=== PATIENT | male | born 1990 | race Caucasian/White ===

== ENCOUNTER 2016-12-27 19:14 | Emergency (ER) | payer OTHER ==
--- NOTE | 2016-12-27 19:39 | EDM.PDOC ---
ED HPI GENERAL MEDICAL PROBLEM - General Chief Complaint: Lower Extremity Injury/Pain Stated Complaint: PT HURT RT FOOT AT WORK Time Seen by Provider: 12/27/16 19:32 Source of Information: Reports: Patient - History of Present Illness INITIAL COMMENTS - FREE TEXT/NARRATIVE: HISTORY AND PHYSICAL: History of present illness: Patient is a 26-year-old male who presents to the emergency room with complaints of right foot pain. He states that a piece of equipment that weighs approximately 6 pounds fell landing on his right foot. He does have some swelling and slight bruising to the lateral aspect of the right foot. He was able to ambulate in but does cause pain with weightbearing. Denies any previous injury to the affected extremity. Denies any numbness or tingling Review of systems: As per history of present illness and below otherwise all systems reviewed and negative. Past medical history: As per history of present illness and as reviewed below otherwise noncontributory. Surgical history: As per history of present illness and as reviewed below otherwise noncontributory. Social history: No reported history of drug or alcohol abuse. Family history: As per history of present illness and as reviewed below otherwise noncontributory. Physical exam: HEENT: Atraumatic, normocephalic, pupils reactive, negative for conjunctival pallor or scleral icterus, mucous membranes moist, throat clear, neck supple, nontender, trachea midline. Lungs: Clear to auscultation, breath sounds equal bilaterally, chest nontender. Heart: S1S2, regular rate and rhythm Abdomen: Soft, nondistended, nontender. Negative for masses or hepatosplenomegaly. Negative for costovertebral tenderness. Pelvis: Stable nontender. Genitourinary: Deferred. Rectal: Deferred. Extremities: Bruising and swelling to the right lateral foot, with tenderness to palpation. Strong pedal pulses. Capillary refill less than 3 seconds.+CMS. Good flexion and dorsiflexion of the foot. negative for cords or calf pain. Neurovascular unremarkable. Neuro: Awake, alert, oriented. Cranial nerves II through XII unremarkable. Cerebellum unremarkable. Motor and sensory unremarkable throughout. Exam nonfocal. Offered a shot of Toradol, patient declined. Reviewed the x-ray report with the patient. Will place the patient in a Cam Walker boot and crutches. Instructed to not weight-bear until he is able to follow-up with podiatry. Patient voices understanding and is agreeable to plan of care. He denies any further questions at this time. Diagnostics: X-ray Therapeutics: [] Impression: 5th Metatarsal fracture, right Plan: 1. Prescription for pain medication, Tramadol, has been provided for you. Please do not take this while driving or needing to be functioning at work as it may cause some drowsiness. You may use Tylenol and/or ibuprofen as needed. 2. Please not weightbearing. Wear your Cam Walker boot and use the crutches appropriately. When at home please rest, ice, elevate the extremity as frequently as possible. 3. Please follow-up with podiatry in the next 3-5 days. Return to the ED as needed and as discussed. Definitive disposition and diagnosis as appropriate pending reevaluation and review of above. Right Feet Pain Score (Numeric/FACES): 3 - Related Data Allergies Allergy/AdvReac Type Severity Reaction Status Date / Time Latex, Natural Rubber Allergy Hives Verified 12/27/16 19:25 Home Meds: Home Meds . [No Known Home Meds] 09/12/14 [History] Past Medical History HEENT History: Reports: None Cardiovascular History: Reports: None Respiratory History: Reports: None Gastrointestinal History: Reports: None Genitourinary History: Reports: None Musculoskeletal History: Reports: None Neurological History: Reports: None Psychiatric History: Reports: None Endocrine/Metabolic History: Reports: None Hematologic History: Reports: None Immunologic History: Reports: None Dermatologic History: Reports: None - Past Surgical History Head Surgeries/Procedures: Reports: None HEENT Surgical History: Reports: None Cardiovascular Surgical History: Reports: None Respiratory Surgical History: Reports: None GI Surgical History: Reports: Appendectomy Male Surgical History: Reports: None Endocrine Surgical History: Reports: None Neurological Surgical History: Reports: None Musculoskeletal Surgical History: Reports: None Social & Family History - Family History Family Medical History: Noncontributory - Tobacco Use Smoking Status *Q: Current Every Day Smoker Years of Tobacco use: 8 Packs/Tins Daily: 0.5 Second Hand Smoke Exposure: Yes - Caffeine Use Caffeine Use: Reports: Energy Drinks Caffeine Use Comment: 2-3/day - Alcohol Use Days Per Week of Alcohol Use: 1 Number of Drinks Per Day: 1 Total Drinks Per Week: 1 - Recreational Drug Use Recreational Drug Use: No Drug Use in Last 12 Months: Yes Recreational Drug Type: Reports: Ecstasy, Heroin, Marijuana/Hashish, Methamphetamine Review of Systems - Review of Systems Review Of Systems: ROS reveals no pertinent complaints other than HPI. ED EXAM, GENERAL - Physical Exam Exam: See Below (See dictation) Course - Vital Signs Last Recorded V/S: Last Vital Signs Temp 37.1 C 12/27/16 19:25 Pulse 73 12/27/16 19:25 Resp 18 12/27/16 19:25 BP 139/74 12/27/16 19:25 Pulse Ox 96 12/27/16 19:25 - Orders/Labs/Meds Orders: Active Orders 24 hr Category Date Time Status Communication Order [RC] STAT Care 12/27/16 20:20 Ordered Foot 2V Rt [CR] Stat Exams 12/27/16 19:35 Taken Departure - Departure Time of Disposition: 20:31 Disposition: Home, Self-Care 01 Clinical Impression: Metatarsal fracture Qualifiers: Encounter type: initial encounter Metatarsal bone: fifth Fracture type: closed Fracture alignment: displaced Laterality: right Qualified Code(s): S92.351A - Displaced fracture of fifth metatarsal bone, right foot, initial encounter for closed fracture - Discharge Information Referrals: PCP,None [Primary Care Provider] - Forms: ED Department Discharge Additional Instructions: My general discharge The following information is given to patients seen in the emergency department who are being discharged to home. This information is to outline your options for follow-up care. We provide all patients seen in our emergency department with a follow-up referral. The need for follow-up, as well as the timing and circumstances, are variable depending upon the specifics of your emergency department visit. If you don't have a primary care physician on staff, we will provide you with a referral. We always advise you to contact your personal physician following an emergency department visit to inform them of the circumstance of the visit and for follow-up with them and/or the need for any referrals to a consulting specialist. The emergency department will also refer you to a specialist when appropriate. This referral assures that you have the opportunity for follow-up care with a specialist. All of these measure are taken in an effort to provide you with optimal care, which includes your follow-up. Under all circumstances we always encourage you to contact your private physician who remains a resource for coordinating your care. When calling for follow-up care, please make the office aware that this follow-up is from your recent emergency room visit. If for any reason you are refused follow-up, please contact the [facility] Emergency Department at and asked to speak to the emergency department charge nurse. [facility] Primary Care - ASK FOR PODIATRY FOLLOW UP [address] [place] [id number] 1. Prescription for pain medication, Tramadol, has been provided for you. Please do not take this while driving or needing to be functioning at work as it may cause some drowsiness. You may use Tylenol and/or ibuprofen as needed. 2. Please not weightbearing. Wear your Cam Walker boot and use the crutches appropriately. When at home please rest, ice, elevate the extremity as frequently as possible. 3. Please follow-up with podiatry in the next 3-5 days. Return to the ED as needed and as discussed. - My Orders Last 24 Hours: My Active Orders 12/27/16 19:35 Foot 2V Rt [CR] Stat 12/27/16 20:20 Communication Order [RC] STAT - Assessment/Plan Last 24 Hours: My Active Orders 12/27/16 19:35 Foot 2V Rt [CR] Stat 12/27/16 20:20 Communication Order [RC] STAT
[2016-12-27 21:32] VITALS: BP 132/65
--- NOTE | 2016-12-28 16:12 | CR ---
EXAM DATE: 12/27/16 PATIENT'S AGE: 26 Patient: DARSHANA SRIVASTAVA Facility: [place], [place] Site . Site : 1990 Study: XRay Extremity Right [id number] 7:53:21 PM Ordering Physician: Doctor Boyce Final Report: INDICATION: Injury to foot. Technique: Two views right foot. Findings: Mildly displaced acute intra-articular fracture involving the base of the right 5th metatarsal extending into the 5th TMT joint. Moderate soft tissue swelling lateral aspect of right foot. Mild soft tissue swelling dorsal aspect of right foot. Mild hallux valgus deformity. Mild narrowing right 1st MTP joint. Remainder negative. Dictated by Rafi Ritter MD @ Dec 27 2016 8:17PM (Electronic Signature) Report Signed by Proxy. JULIO
== END 2016-12-27 20:52 | disposition home or self-care (01) ==
LOC: MW.ED 19:14
DX: S92.351A Displaced fracture of fifth metatarsal bone, right foot, initial encounter for closed fracture (principal); F17.210 Nicotine dependence, cigarettes, uncomplicated; W19.XXXA Unspecified fall, initial encounter
CPT/HCPCS: 73620-26-RT; 73620-RT; 99283; 99284

== ENCOUNTER 2022-12-07 19:15 | Emergency (ER) | payer SELFPAY ==
[2022-12-07] MEDS ORDERED: Lidocaine 4% 1 each Patch TOP PRN (19:50)
[2022-12-07] MEDS ORDERED: Ketorolac 30 MG/ML SDV IVPUSH ONE (19:50)
[2022-12-07 20:03] LABS: BASOPHILS ABSOLUTE AUTO 0.03 K/uL (0.00-0.20); BASOPHILS PERCENT AUTO 0.3 % (0.0-1.0); EOSINOPHILS ABSOLUTE AUTO 0.18 K/uL (0.00-0.45); EOSINOPHILS PERCENT AUTO 1.6 % (0.0-6.0); HEMATOCRIT 42.2 % (42.0-52.0); HEMOGLOBIN 14.8 g/dL (14.0-18.0); IMMATURE GRAN ABSOLUTE AUTO 0.03 K/uL (0.00-0.05); IMMATURE GRAN PERCENT AUTO 0.3 % (0.0-0.4); LYMPHOCYTES ABSOLUTE AUTO 1.49 K/uL (1.00-4.80); LYMPHOCYTES PERCENT AUTO 13.2 % (24.0-44.0); MEAN CORPUSCULAR HEMOGLOBIN 31.5 pg (28.0-32.0); MEAN CORPUSCULAR HGB CONC 35.1 g/dL (32.0-36.0); MEAN CORPUSCULAR VOLUME 89.8 fL (83.0-99.0); MEAN PLATELET VOLUME 10.3 fL (9.4-12.4); MONOCYTES ABSOLUTE AUTO 1.06 K/uL (0.00-0.80); MONOCYTES PERCENT AUTO 9.4 % (0.0-8.0); NEUTROPHILS ABSOLUTE AUTO 8.53 K/uL (1.80-7.70); NEUTROPHILS PERCENT AUTO 75.2 % (41.0-71.0); PLATELET COUNT,PLT 201 K/uL (150-400); WHITE BLOOD CELL COUNT,WBC 11.32 K/uL (3.9-11.3)
[2022-12-07 20:16] LABS: CALCIUM 9.5 mg/dL (8.5-10.1); CREATININE 1.3 mg/dL (0.8-1.3); EST CRCL DRUG DOSING (CG) 83.09 mL/min
[2022-12-07 21:59] VITALS: BP 106/64; PULSE 60
== END 2022-12-07 21:58 | disposition home or self-care (01) ==
LOC: MW.ED 19:15
DX: R07.9 Chest pain, unspecified (principal); Z91.040 Latex allergy status
CPT/HCPCS: 36415; 71046; 80048; 84484; 85025; 93005; 96374; 99285; A9270; J1885; 93010; 99284

== ENCOUNTER 2024-01-15 16:14 | Emergency (ER) | payer BC ==
[2024-01-15] MEDS: Sodium Chloride 0.9% 1,000 ML IV ONE (16:46)
[2024-01-15 16:54] LABS: BASOPHILS ABSOLUTE AUTO 0.03 K/uL (0.00-0.20); BASOPHILS PERCENT AUTO 0.3 % (0.0-1.0); EOSINOPHILS ABSOLUTE AUTO 0.16 K/uL (0.00-0.45); EOSINOPHILS PERCENT AUTO 1.8 % (0.0-6.0); HEMOGLOBIN 14.2 g/dL (14.0-18.0); IMMATURE GRAN ABSOLUTE AUTO 0.04 K/uL (0.00-0.05); IMMATURE GRAN PERCENT AUTO 0.5 % (0.0-0.4); LYMPHOCYTES ABSOLUTE AUTO 1.22 K/uL (1.00-4.80); LYMPHOCYTES PERCENT AUTO 13.8 % (24.0-44.0); MEAN CORPUSCULAR HEMOGLOBIN 30.5 pg (28.0-32.0); MEAN CORPUSCULAR HGB CONC 34.6 g/dL (32.0-36.0); MEAN CORPUSCULAR VOLUME 88.2 fL (83.0-99.0); MEAN PLATELET VOLUME 9.8 fL (9.4-12.4); MONOCYTES ABSOLUTE AUTO 0.74 K/uL (0.00-0.80); MONOCYTES PERCENT AUTO 8.4 % (0.0-8.0); NEUTROPHILS ABSOLUTE AUTO 6.62 K/uL (1.80-7.70); NEUTROPHILS PERCENT AUTO 75.2 % (41.0-71.0); PLATELET COUNT,PLT 194 K/uL (150-400); RED BLOOD CELL COUNT 4.65 M/uL (4.52-5.90); WHITE BLOOD CELL COUNT,WBC 8.81 K/uL (3.9-11.3)
[2024-01-15 17:16] LABS: A/G RATIO 1.7 (0.9-1.6); ALBUMIN 4.1 g/dL (3.4-5.0); BILIRUBIN TOTAL 0.7 mg/dL (0.2-1.0); CALCIUM 8.9 mg/dL (8.5-10.1); CREATININE 1.1 mg/dL (0.8-1.3); EST CRCL DRUG DOSING (CG) 97.3 mL/min; PROTEIN TOTAL,TP 6.5 g/dL (6.4-8.2)
[2024-01-15] MEDS: Iopamidol 755 MG/ML 500 ML Multipack Bottle IVPUSH STA (17:55)
[2024-01-15 18:33] LABS: APPEARANCE,URINE CLEAR; BILIRUBIN,URINE NEGATIVE (NEGATIVE); COLOR,URINE YELLOW; GLUCOSE,URINE NEGATIVE (NEGATIVE); KETONES,URINE TRACE mg/dL (NEGATIVE); LEUKOCYTE ESTERASE,URINE NEGATIVE (NEGATIVE); NITRITE,URINE NEGATIVE (NEGATIVE); OCCULT BLOOD,URINE NEGATIVE (NEGATIVE); PROTEIN,URINE NEGATIVE (NEGATIVE)
[2024-01-15 19:37] VITALS: BP 125/74; PULSE 58
== END 2024-01-15 19:03 | disposition home or self-care (01) ==
LOC: MW.ED 16:14
DX: K42.9 Umbilical hernia without obstruction or gangrene (principal); Z90.49 Acquired absence of other specified parts of digestive tract; Z91.040 Latex allergy status; Z75.8 Other problems related to medical facilities and other health care
CPT/HCPCS: 36415; 74177; 80053; 81003; 83690; 85025; 96360; 99284; J7030; Q9967